=== PATIENT | male | born 1990 | race Caucasian/White ===

== ENCOUNTER 2020-01-27 10:47 | Outpatient (REF) | payer MEDICAID, SELFPAY | END 2020-01-27 10:48 | disposition home or self-care (01) | LOC: HO.LAB 10:47 | PROVIDERS: Visit Provider Internal Medicine | DX: Z20.828 Contact with and (suspected) exposure to other viral communicable diseases (principal) | CPT/HCPCS: C9803; U0003 ==

== ENCOUNTER 2020-02-10 15:51 | Emergency (ER) | payer MEDICAID, SELFPAY ==
[2020-02-10 16:16] VITALS: BP 124/63; PULSE 72; RESP 18; TEMP 36.6; O2SAT 100
--- NOTE | 2020-02-10 16:45 | ED.ALLEREA ---
HPI - Allergic Reaction General Chief complaint: Allergic Reaction Stated complaint: Allergic reaction Time Seen by Provider: 02/10/20 16:17 Source: patient and family Mode of arrival: ambulatory Limitations: no limitations and language barrier (Sister is signing for patient) History of Present Illness HPI narrative: 29-year-old male who noticed generalized rash for 1 hour. Patient tells me he was getting undressed to go in the shower and noticed an itchy rash all over his body. He denies any new foods, medications, products. He does tell me that he bought new pants and did not wash them and removed the tags this morning and was wearing them this afternoon. complaint: hives Onset (ago): hour(s) (<1hr) Exposure: unknown Symptoms: rash Severity: mild Treatment prior to arrival: none Previous Allergic Reaction History: none Related Data Previous Rx's Medication Instructions Recorded diphenhydramine HCl [Benadryl] 25 mg PO Q6H PRN #20 cap 02/10/20 prednisone 40 mg PO DAILY #8 tab 02/10/20 Allergies Allergy/AdvReac Type Severity Reaction Status Date / Time No Known Allergies Allergy Unverified 11/09/19 16:03 Review of Systems Review of Systems: Yes all other systems are reviewed and are negative Constitutional: Constitutional: Reports no additional constitutional complaints, Denies body ache(s), Denies chills, Denies fever(s), Denies headache(s) and Denies weakness Eyes: Eyes: Reports no additional eye complaints and Denies change in vision ENT: Reports system reviewed and no additional complaints, except as documented, Denies dizziness, Denies headache(s), Denies nasal congestion, Denies nasal discharge and Denies neck pain Cardiovascular: Cardiovascular: Reports no additional cardiovascular complaints, Denies chest pain, Denies leg edema and Denies dyspnea Respiratory: Respiratory: Reports no additional respiratory complaints, Denies cough and Denies dyspnea Gastrointestinal: Gastrointestinal: Reports no additional gastrointestinal complaints, Denies abdominal pain, Denies diarrhea, Denies nausea and Denies vomiting Genitourinary: Genitourinary: Denies urinary incontinence Musculoskeletal: Musculoskeletal: Reports no additional musculoskeletal complaints, Denies back pain, Denies arthralgias, Denies joint swelling, Denies neck pain, Denies numbness and Denies tingling Integumentary/Breasts: Skin/Breast: Reports system reviewed and no additional complaints, except as docu and Reports rash Neurologic: Reports system reviewed and no additional complaints, except as documented, Denies Abnormal speech present, Denies dizziness, Denies headache(s), Denies numbness, Denies tingling and Denies weakness PMFSH Past Medical History Attestation statement: The following information was validated with the patient. Source: old records reviewed and nursing notes reviewed Medical History Hearing impaired Social History Social History Smoking Status: Never smoker Substance Use Type: Marijuana Substance Use Frequency: Daily Advance Directives: No Advance Directives Information Provided: Yes Physical Exam Vital Signs: Vital Signs: Last Vital Signs Temp 97.8 F 02/10/20 16:16 Pulse 72 02/10/20 16:16 Resp 18 02/10/20 16:16 BP 124/63 02/10/20 16:16 Pulse Ox 100 02/10/20 16:16 Body Mass Index 9.1 Const: General: cooperative, healthy appearing, comfortable and no acute distress Orientation/consciousness: patient oriented x3 Limitations: no limitations HENMT: Head: Yes normal to inspection Ears: hearing grossly normal bilaterally General nose exam: Normal external nose present Face and sinus: Yes normal facial exam Mouth: Normal oral and palatal mucosa present Throat: Yes posterior oropharynx normal Eyes: General: appearance normal, both eyes and all related structures Pupils: Equal, round and reactive pupils present Neck: Neck: Yes normal visual inspection Chest: Chest palpation & inspection: normal inspection of the chest Resp: Effort & Inspection: normal respiratory effort Auscultation: clear to auscultation bilaterally Cardio: Rate: regular rate Rhythm: regular rhythm Peripheral pulses: Peripheral pulses 2+ throughout GI: Inspection: Yes normal to inspection Palpation (GI): Soft to palpation and nontender Auscultation: normal bowel sounds Back/Spine/Pelvis: Thoracic/Lumbar Spine: thoracic and lumbar spine normal to inspection Skin: Other: Urticarial rash noted to the inner thighs and lateral thighs. Also noted over the chest and back. Several lesions over the upper arms. General skin exam: no rashes or lesions noted Neuro: General: patient oriented x3, no focal motor deficits and normal sensation to monofilament Cranial nerves: Yes Equal, round and reactive pupils present Cognition (Neuro): normal cognition Speech: No Abnormal speech present Gait exam (Neuro): Normal gait present Motor exam (neuro): 5/5 motor strength present throughout Extrem: General: Yes normal to inspection Course Course Course Narrative: Exam consistent with mild allergic reaction. Patient received Benadryl and prednisone in the emergency department with some improvement. There is no airway involvement, angioedema or more systemic signs. Will discharge patient home with symptomatic relief. We discussed keeping a diary at home with his foods and products. Reviewed worrisome signs and symptoms and when to return to the emergency department. Comfortable discharge home. Discharge Plan Discharge Clinical Impression: Allergic reaction Qualifiers: Encounter type: initial encounter Qualified Code(s): T78.40XA - Allergy, unspecified, initial encounter Patient Disposition: Home, Self-Care Instructions: Urticaria (ED) Additional Instructions: You have come into contact with something that you are allergic to. This may be from earlier shorts so take these home and wash them with soap and water. Write down all products use and foods that you eat and keep a diary. Your next dose of prednisone is tomorrow. You may take Benadryl every 6-8 hours as needed Prescriptions: New diphenhydramine HCl [Benadryl] 25 mg capsule 25 mg PO Q6H PRN (Reason: itching) Qty: 20 RF: 0 prednisone 20 mg tablet 40 mg PO DAILY Qty: 8 RF: 0 Referrals: [facility] [Primary Care Provider] - 2 days Interventions: ED Discharge Assessment Last Done: 02/10/20 16:57 Discharge Date/Time: 02/10/20 16:57
[2020-02-10] MEDS: predniSONE 20 MG TABLET 60 MG PO (16:49)
[2020-02-10] MEDS: diphenhydrAMINE HCL 25 MG TABLET 50 MG PO (16:49)
== END 2020-02-10 16:57 | disposition home or self-care (01) ==
PROVIDERS: Emergency Provider Emergency Medicine
DX: L23.9 Allergic contact dermatitis, unspecified cause (principal); Z79.899 Other long term (current) drug therapy; F12.90 Cannabis use, unspecified, uncomplicated
CPT/HCPCS: 99284; Q0163

== ENCOUNTER 2020-02-11 10:53 | Emergency (ER) | payer MEDICAID, SELFPAY ==
--- NOTE | 2020-02-11 11:35 | ED.ALLEREA ---
HPI - Allergic Reaction General Chief complaint: Skin/Abscess/Foreign Body Stated complaint: allergic reaction Time Seen by Provider: 02/11/20 11:07 Source: patient and legal transcriptionist (Mom is felt tipping machine tender) Mode of arrival: ambulatory Limitations: no limitations and language barrier History of Present Illness HPI narrative: 29-year-old male here with generalized rash. He tells me he was seen here yesterday for same and was prescribed prednisone and Benadryl. He tells me he took a dose of Benadryl and prednisone while he was here in the emergency department yesterday however went to fill his medications today and they were unavailable. He tells me he has not taking any other doses of Benadryl at home. He tells me the rash is about the same. It is not worsened. He has no different symptoms. No vomiting, diarrhea, abdominal cramps, shortness of breath, cough, airway involvement. He tells me he came here because of his difficulty getting his medications. MD complaint: hives Onset (ago): day(s) Exposure: unknown Symptoms: rash Severity: mild Treatment prior to arrival: benadryl (50 benadryl x 1 yesterday, prednisone 60 x1 yesterday) Previous Allergic Reaction History: prior ED visit(s) Related Data Previous Rx's Medication Instructions Recorded diphenhydramine HCl [Benadryl] 25 mg PO Q6H PRN #20 cap 02/10/20 prednisone 40 mg PO DAILY #8 tab 02/10/20 Allergies Allergy/AdvReac Type Severity Reaction Status Date / Time No Known Allergies Allergy Verified 02/11/20 11:12 Review of Systems Review of Systems: Yes all other systems are reviewed and are negative Constitutional: Constitutional: Reports no additional constitutional complaints, Denies body ache(s), Denies chills, Denies fever(s), Denies headache(s) and Denies weakness Eyes: Eyes: Reports no additional eye complaints and Denies change in vision ENT: Reports system reviewed and no additional complaints, except as documented, Denies dizziness, Denies headache(s), Denies nasal congestion, Denies nasal discharge and Denies neck pain Cardiovascular: Cardiovascular: Reports no additional cardiovascular complaints, Denies chest pain, Denies leg edema and Denies dyspnea Respiratory: Respiratory: Reports no additional respiratory complaints, Denies cough and Denies dyspnea Gastrointestinal: Gastrointestinal: Reports no additional gastrointestinal complaints, Denies abdominal pain, Denies diarrhea, Denies nausea and Denies vomiting Genitourinary: Genitourinary: Denies urinary incontinence Musculoskeletal: Musculoskeletal: Reports no additional musculoskeletal complaints, Denies back pain, Denies arthralgias, Denies joint swelling, Denies neck pain, Denies numbness and Denies tingling Integumentary/Breasts: Skin/Breast: Reports system reviewed and no additional complaints, except as docu and Reports rash Neurologic: Reports system reviewed and no additional complaints, except as documented, Denies Abnormal speech present, Denies dizziness, Denies headache(s), Denies numbness, Denies tingling and Denies weakness PMFSH Past Medical History Attestation statement: The following information was validated with the patient. Source: old records reviewed and nursing notes reviewed Medical History Hearing impaired Social History Social History Smoking Status: Never smoker Substance Use Type: Marijuana Advance Directives: No Advance Directives Information Provided: Yes Physical Exam Vital Signs: Vital Signs: Last Vital Signs Temp 99.5 F 02/11/20 11:51 Pulse 87 02/11/20 11:51 Resp 16 02/11/20 11:51 BP 126/85 02/11/20 11:51 Pulse Ox 98 02/11/20 11:51 Body Mass Index 20.0 Const: General: cooperative, healthy appearing, comfortable and no acute distress Orientation/consciousness: patient oriented x3 Limitations: no limitations HENMT: Head: Yes normal to inspection Ears: hearing grossly normal bilaterally General nose exam: Normal external nose present Face and sinus: Yes normal facial exam Mouth: Normal oral and palatal mucosa present Throat: Yes posterior oropharynx normal Eyes: General: appearance normal, both eyes and all related structures Pupils: Equal, round and reactive pupils present Neck: Neck: Yes normal visual inspection Chest: Chest palpation & inspection: normal inspection of the chest Resp: Effort & Inspection: normal respiratory effort Auscultation: clear to auscultation bilaterally Cardio: Rate: regular rate Rhythm: regular rhythm Peripheral pulses: Peripheral pulses 2+ throughout GI: Inspection: Yes normal to inspection Palpation (GI): Soft to palpation and nontender Auscultation: normal bowel sounds Back/Spine/Pelvis: Thoracic/Lumbar Spine: thoracic and lumbar spine normal to inspection Skin: Other: Urticarial rash noted over the bilateral forearms, bilateral thighs and trunk. General skin exam: no rashes or lesions noted Neuro: General: patient oriented x3, no focal motor deficits and normal sensation to monofilament Cranial nerves: Yes Equal, round and reactive pupils present Cognition (Neuro): normal cognition Speech: No Abnormal speech present Gait exam (Neuro): Normal gait present Motor exam (neuro): 5/5 motor strength present throughout Extrem: General: Yes normal to inspection Course Course Course Narrative: Patient here with urticarial rash. Seen yesterday and diagnosed with allergic reaction. Sent home with prednisone and Benadryl but difficulty obtaining a pharmacy today. I did call pharmacy and they do have his prednisone filled however there is a cost 12 dollars as it was not covered by his insurance. This was communicated to the patient and he was okay with this. I gave him a dose of prednisone here today. They also do not have Benadryl covered by his insurance. Discussed with the patient he can buy this [id number]. He received a dose of Benadryl here. I reviewed the rash. Does not appear worsened from yesterday. We recommended continuing to medications home and follow-up with primary care doctor in 5-7 days if no improvement symptoms. Again reviewed keeping diary of all contacts, medications, products. Reviewed worrisome signs and symptoms of when to return to the emergency department. Comfortable discharge home. Discharge Plan Discharge Clinical Impression: Urticaria Patient Disposition: Home, Self-Care Instructions: Urticaria (ED) Additional Instructions: Start prednisone tomorrow. The pharmacy has it ready for you By [id number] Benadryl and take 1 pill every 6 hours as needed for rash or itching If no improvement after 5 days follow-up with your primary care doctor Prescriptions: No Action diphenhydramine HCl [Benadryl] 25 mg capsule 25 mg PO Q6H PRN (Reason: itching) Qty: 20 RF: 0 prednisone 20 mg tablet 40 mg PO DAILY Qty: 8 RF: 0 Referrals: [facility] [Primary Care Provider] - 2 days Interventions: ED Discharge Assessment Last Done: 02/11/20 12:08 Discharge Date/Time: 02/11/20 12:09
[2020-02-11 11:51] VITALS: BP 126/85; PULSE 87; RESP 16; TEMP 37.5; O2SAT 98
[2020-02-11] MEDS: diphenhydrAMINE HCL 25 MG TABLET PO (12:00)
[2020-02-11] MEDS: predniSONE 20 MG TABLET 60 MG PO (12:00)
== END 2020-02-11 12:09 | disposition home or self-care (01) ==
PROVIDERS: Emergency Provider Emergency Medicine
DX: L50.9 Urticaria, unspecified (principal)
CPT/HCPCS: 99283; Q0163

== ENCOUNTER 2020-09-27 23:14 | Emergency (ER) | payer MEDICAID, SELFPAY ==
--- NOTE | ~2020-09-27 | CT_ITS ---
EXAMINATION: CT ABDOMEN AND PELVIS WITHOUT CONTRAST CLINICAL INFORMATION: Bilateral flank pain COMPARISON: 02.18.2015 TECHNIQUE: Multidetector volumetric imaging was performed from the superior aspect of the liver through the pubic symphysis. Sagittal and coronal reformatted images were obtained on the technologist's workstation. This CT examination was performed using dose optimization techniques as appropriate, variously including the following: *Automated exposure control *Adjustment of mA and/or kV according to patient size (this includes techniques or standardized protocols for targeted exams where dose is matched to indication/reason for exam; i.e. extremities or head) *Use of iterative reconstruction technique DLP: 342 mGy-cm FINDINGS: LUNG BASES: The visualized lung bases are unremarkable. LIVER, GALLBLADDER, AND BILIARY TREE: The liver is normal in size, shape, and attenuation. No focal hepatic lesion or biliary ductal dilatation is present. The gallbladder is unremarkable with no evidence of radiopaque gallstones, gallbladder wall thickening, or obvious pericholecystic inflammatory changes. PANCREAS: Unremarkable. SPLEEN: Unremarkable. ADRENAL GLANDS: Unremarkable. KIDNEYS AND URETERS: The kidneys are normal in size, shape, and attenuation. No hydronephrosis, hydroureter, or calculi seen. No perinephric stranding. BLADDER: Unremarkable. GASTROINTESTINAL TRACT: The small and large bowel are unremarkable. The appendix is unremarkable. ABDOMINAL WALL: No significant hernia is appreciated. LYMPH NODES: Normal. VASCULAR: Unremarkable. PELVIC VISCERA: Unremarkable. OSSEOUS STRUCTURES: Unremarkable. CT/CT abdomen pelvis wo con IMPRESSION: No significant abnormality.
[2020-09-27 23:43] VITALS: BP 116/66; PULSE 86; RESP 18; TEMP 37.8; O2SAT 99; BMI 20.2
[2020-09-28 00:06] LABS: Glucose Urine UA NEG (NEG); Leukocyte Esterase Urine NEG (NEG); Nitrite Urine NEG (NEG); PH 6.5 (5.0-8.0); Specific Gravity - Urine 1.015 (1.005-1.025); Urine Blood NEG (NEG); Urine Ketones NEG (NEG); Urine Protein NEG (NEG-TRACE)
[2020-09-28 00:09] LABS: Appearance Urine HAZY; Color Urine YELLOW; UACC Culture Trigger NO
[2020-09-28 00:51] VITALS: BP 122/60; PULSE 63; RESP 16; TEMP 37.6; O2SAT 98
--- NOTE | 2020-09-28 01:01 | ED.GENADULT ---
HPI - General Adult General Chief complaint: Back Pain/Injury Stated complaint: back pain Time Seen by Provider: 09/28/20 00:02 Source: patient Mode of arrival: ambulatory Limitations: no limitations History of Present Illness HPI narrative: Patient comes by EMS complaining of bilateral flank pain. Patient states it started approximately 6 hours ago, started out with flank pain and vomiting. Patient reports 6 episodes of vomiting. Patient denies abdominal pain, no diarrhea, no fever chills, no dysuria or hematuria. Patient is deaf mute, interpretation is being done by park interpreter online Related Data Previous Rx's Medication Instructions Recorded diphenhydramine HCl 25 mg capsule 25 mg PO Q6H PRN #20 cap 02/10/20 (Benadryl) prednisone 20 mg tablet 40 mg PO DAILY #8 tab 02/10/20 cyclobenzaprine 10 mg tablet 10 mg PO TID PRN #10 tab 09/28/20 ibuprofen 600 mg tablet 600 mg PO Q8H PRN #10 tab 09/28/20 Allergies Allergy/AdvReac Type Severity Reaction Status Date / Time No Known Allergies Allergy Verified 09/27/20 23:50 Review of Systems Review of Systems: Constitutional : No Weight loss, No Fever, No Chills, No Night Sweats, No Fatigue, No Malaise ENT/Mouth : No Hearing loss, No Ear Pain, No Nasal Congestion, No Sinus Pain, No Hoarseness, No sore throat, No Rhinorrhea, No Swallowing Difficulty Eyes: No Eye Pain, No Swelling, No Redness, No Foreign Body, No Discharge, No Vision Changes Cardiovascular : No Chest Pain, No SOB, No Dyspnea on Exertion, No Orthopnea, No Edema, No Palpitations Respiratory : No Cough, No Sputum, No Wheezing, No Smoke Exposure, No Dyspnea Gastrointestinal : Complaining of nausea and vomiting, No Diarrhea, No Constipation, No abdominal Pain, No Hematochezia, No Melena Genitourinary : no irregular bleeding, No Dysuria, No Urinary Frequency, No Hematuria, No Urinary Incontinence, No Urgency, complaining of bilateral Flank Pain, No Urinary Flow Changes, No Hesitancy Musculoskeletal : No joint pain, No Myalgias, No Joint Swelling Skin : No Skin Lesions, No rash Neuro : No Weakness, No Numbness, No Paresthesias, No Loss of Consciousness, No Dizziness, No Headache Psych : No Anxiety/Panic, No Depression, No SI/HI/AH/VH, No Social Issues, Heme/Lymph: No Bruising, No Bleeding,No Lymphadenopathy Endocrine : No Polyuria, No Polydipsia, No Temperature Intolerance PMF Past Medical History Medical History Hearing impaired Social History Social History Substance Use Type: Marijuana Advance Directives: No Physical Exam Vital Signs: Vital Signs: Last Vital Signs Temp 99.6 F 09/28/20 00:51 Pulse 63 09/28/20 00:51 Resp 16 09/28/20 00:51 BP 122/60 09/28/20 00:51 Pulse Ox 98 09/28/20 00:51 Body Mass Index 20.2 Const: Other: Appearance: Alert. Oriented X3. No acute distress. Eyes: Pupils equal, round and reactive to light. ENT: Pharynx normal. Neck: Normal inspection. Neck supple. No lymph nodes noted. No crepitus CVS: Normal heart rate and rhythm. Pulses normal. Normal S1 and S2 Respiratory: No respiratory distress. Breath sounds normal. No Wheezing. No rales Abdomen: Soft and nontender. No rigidity. No distention. positive flank tenderness bilaterally Skin: Skin warm and dry. Normal skin color. Normal skin turgor. Extremities: No lower extremity edema. No lower extremity edema. No Lacerations. No Rash Neuro: Oriented X 3. No motor deficit. No sensory deficit. Moving all extermities. No slurred speech. Course Course Course Narrative: I discussed with the patient that his labs were within normal limits, no acute pathology, CT scan negative for kidney stones Patient states he feels better. Discussed with the patient that his source of pain is likely musculoskeletal. Medical Decision Making Lab Data Result diagrams: 09/28/20 01:05 09/28/20 01:05 Labs: Lab Results 09/27/20 09/28/20 09/28/20 Range/Units 23:55 01:05 01:05 WBC 8.5 (4.8-10.8) X10*3/uL RBC 5.36 (4.60-5.80) X10*6/uL Hgb 15.6 (14.0-18.0) g/dl Hct 45.2 (42-52) % MCV 84.3 (80-98) fL MCH 29.1 (27.0-33.0) pg MCHC 34.5 (31.0-36.0) g/dl RDW 12.1 (11.0-16.0) % Plt Count 194 (160-400) X10*3/uL MPV 9.9 (9.4-12.4) fL Immature Gran % (Auto) 0.4 (0.0-0.4) % Neut % (Auto) 75.8 H (45-73) % Lymph % (Auto) 7.0 L (20-40) % [place] % (Auto) 16.2 H (2-11) % Eos % (Auto) 0.2 (0-4) % Baso % (Auto) 0.4 (0-2) % Lymph # (Auto) 0.6 L (1.2-4.9) X10*3/uL [place] # (Auto) 1.4 H (0.1-1.2) X10*3/uL Eos # (Auto) 0.0 (0.0-0.4) X10*3/uL Baso # (Auto) 0.0 (0.0-0.2) X10*3/uL Abs Immat Gran (auto) 0.03 (0.00-0.03) X10*3/uL Absolute Neuts (auto) 6.5 (2.0-8.3) X10*3/uL Absolute Nucleated RBC 0.000 (0.0-0.012) X10*3/uL Nucleated RBC % (auto) 0.0 (0.0-0.2) /100WBC Sodium 137 (135-145) mmol/L Potassium 4.0 (3.3-5.1) mmol/L Chloride 103 (96-108) mmol/L Carbon Dioxide 23 (22-29) mmol/L Anion Gap 15 (12-20) BUN 9 (9-16) mg/dL Creatinine 0.98 (0.5-1.4) mg/dL Estim Creat Clear Calc 89.3 Estimated GFR > 60 Random Glucose 93 (60-115) mg/dL Calcium 9.5 (8.4-10.2) mg/dL Total Bilirubin (0.0-1.0) mg/dL Direct Bilirubin (0.0-0.5) mg/dL AST (5-37) U/L ALT (0-40) U/L Alkaline Phosphatase (39-117) U/L Total Protein (6.5-8.0) g/dL Albumin (3.5-5.0) g/dL Lipase (8-78) U/L Urine Color YELLOW Urine Appearance HAZY Urine pH 6.5 (5.0-8.0) Ur Specific Goodwin 1.015 (1.005-1.025) Urine Protein NEG (NEG-TRACE) MG/DL Urine Glucose (UA) NEG (NEG) MG/DL Urine Ketones NEG (NEG) MG/DL Urine Blood NEG (NEG) Urine Nitrite NEG (NEG) Ur Leukocyte Esterase NEG (NEG) 09/28/20 Range/Units 01:05 WBC (4.8-10.8) X10*3/uL RBC (4.60-5.80) X10*6/uL Hgb (14.0-18.0) g/dl Hct (42-52) % MCV (80-98) fL MCH (27.0-33.0) pg MCHC (31.0-36.0) g/dl RDW (11.0-16.0) % Plt Count (160-400) X10*3/uL MPV (9.4-12.4) fL Immature Gran % (Auto) (0.0-0.4) % Neut % (Auto) (45-73) % Lymph % (Auto) (20-40) % [place] % (Auto) (2-11) % Eos % (Auto) (0-4) % Baso % (Auto) (0-2) % Lymph # (Auto) (1.2-4.9) X10*3/uL [place] # (Auto) (0.1-1.2) X10*3/uL Eos # (Auto) (0.0-0.4) X10*3/uL Baso # (Auto) (0.0-0.2) X10*3/uL Abs Immat Gran (auto) (0.00-0.03) X10*3/uL Absolute Neuts (auto) (2.0-8.3) X10*3/uL Absolute Nucleated RBC (0.0-0.012) X10*3/uL Nucleated RBC % (auto) (0.0-0.2) /100WBC Sodium (135-145) mmol/L Potassium (3.3-5.1) mmol/L Chloride (96-108) mmol/L Carbon Dioxide (22-29) mmol/L Anion Gap (12-20) BUN (9-16) mg/dL Creatinine (0.5-1.4) mg/dL Estim Creat Clear Calc Estimated GFR Random Glucose (60-115) mg/dL Calcium (8.4-10.2) mg/dL Total Bilirubin 0.3 (0.0-1.0) mg/dL Direct Bilirubin 0.2 (0.0-0.5) mg/dL AST 20 (5-37) U/L ALT 17 (0-40) U/L Alkaline Phosphatase 59 (39-117) U/L Total Protein 7.8 (6.5-8.0) g/dL Albumin 4.4 (3.5-5.0) g/dL Lipase 23 (8-78) U/L Urine Color Urine Appearance Urine pH (5.0-8.0) Ur Specific Goodwin (1.005-1.025) Urine Protein (NEG-TRACE) MG/DL Urine Glucose (UA) (NEG) MG/DL Urine Ketones (NEG) MG/DL Urine Blood (NEG) Urine Nitrite (NEG) Ur Leukocyte Esterase (NEG) Imaging Data CT scan - abdomen: Radiologist's impression: FINDINGS: LUNG BASES: The visualized lung bases are unremarkable.? LIVER, GALLBLADDER, AND BILIARY TREE: The liver is normal in size, shape, and attenuation. No focal hepatic lesion or biliary ductal dilatation is present. The gallbladder is unremarkable with no evidence of radiopaque gallstones, gallbladder wall thickening, or obvious pericholecystic inflammatory changes.? PANCREAS: Unremarkable.? SPLEEN: Unremarkable.? ADRENAL GLANDS: Unremarkable.? KIDNEYS AND URETERS: The kidneys are normal in size, shape, and attenuation. No hydronephrosis, hydroureter, or calculi seen. No perinephric stranding. ? BLADDER: Unremarkable.? GASTROINTESTINAL TRACT: The small and large bowel are unremarkable. The appendix is unremarkable.? ABDOMINAL WALL: No significant hernia is appreciated.? LYMPH NODES: Normal. VASCULAR: Unremarkable. PELVIC VISCERA: Unremarkable.? OSSEOUS STRUCTURES: Unremarkable.? CT/CT abdomen pelvis wo con IMPRESSION: No significant abnormality.? Discharge Plan Discharge Clinical Impression: Acute bilateral back pain Qualifiers: Back pain location: thoracic back pain Qualified Code(s): M54.6 - Pain in thoracic spine Patient Disposition: Home, Self-Care Instructions: Back Pain (ED) Additional Instructions: Please follow-up with your primary care physician tomorrow. If you have any worsening or new symptoms, please return to the emergency room or call 911 Prescriptions: New ibuprofen 600 mg tablet 600 mg PO Q8H PRN (Reason: fever) Qty: 10 RF: 0 cyclobenzaprine 10 mg tablet 10 mg PO TID PRN (Reason: muscle spasm) Qty: 10 RF: 0 No Action diphenhydramine HCl [Benadryl] 25 mg capsule 25 mg PO Q6H PRN (Reason: itching) Qty: 20 RF: 0 prednisone 20 mg tablet 40 mg PO DAILY Qty: 8 RF: 0
[2020-09-28 01:10] LABS: MANUAL DIFF FLAG NO
[2020-09-28 01:11] LABS: Basophils Percent Auto 0.4 % (0-2); Eosinophils Percent Auto 0.2 % (0-4); Hematocrit 45.2 % (42-52); Hemoglobin 15.6 g/dl (14.0-18.0); Imm Gran Abs Auto 0.03 X10*3/uL (0.00-0.03); Imm Gran Pct Auto 0.4 % (0.0-0.4); Lymphocytes Absolute Auto 0.6 X10*3/uL (1.2-4.9); Mean Corpuscular HGB Conc 34.5 g/dl (31.0-36.0); Mean Corpuscular Hemoglobin 29.1 pg (27.0-33.0); Mean Corpuscular Volume 84.3 fL (80-98); Mean Platelet Volume 9.9 fL (9.4-12.4); Monocytes Absolute Auto 1.4 X10*3/uL (0.1-1.2); Monocytes Percent Auto 16.2 % (2-11); Neutrophils Absolute Auto 6.5 X10*3/uL (2.0-8.3); Neutrophils Percent Auto 75.8 % (45-73); Platelet Count 194 X10*3/uL (160-400); Red Blood Count 5.36 X10*6/uL (4.60-5.80); Red Cell Distribution Width 12.1 % (11.0-16.0); White Blood Count 8.5 X10*3/uL (4.8-10.8)
[2020-09-28 01:41] LABS: Anion Gap 15 (12-20); Blood Urea Nitrogen 9 mg/dL (9-16); Calcium 9.5 mg/dL (8.4-10.2); Carbon Dioxide 23 mmol/L (22-29); Chloride 103 mmol/L (96-108); Creatinine Clr Calc Pharmacy 89.3; Estimated Glomerular Filt Rate > 60; Glucose Random 93 mg/dL (60-115); Sodium 137 mmol/L (135-145)
[2020-09-28 01:42] LABS: Alanine Aminotransferase 17 U/L (0-40); Albumin Level 4.4 g/dL (3.5-5.0); Alkaline Phosphatase 59 U/L (39-117); Aspartate Amino Transferase 20 U/L (5-37); Bilirubin Direct 0.2 mg/dL (0.0-0.5); Bilirubin Total 0.3 mg/dL (0.0-1.0); Lipase 23 U/L (8-78); Total Protein 7.8 g/dL (6.5-8.0)
[2020-09-28] MEDS: 0.9 % Sodium Chloride 1,000 ML 999 ML IVCONT (01:44)
[2020-09-28] MEDS: Ketorolac Tromethamine 15 MG/ML VIAL 30 MG IVPUSH (01:44)
[2020-09-28 02:00] VITALS: BP 97/46; PULSE 67; RESP 16; TEMP 37.5; O2SAT 99
== END 2020-09-28 03:15 | disposition home or self-care (01) ==
PROVIDERS: Emergency Provider Emergency Medicine; PCP Family Medicine
DX: M54.6 Pain in thoracic spine (principal); F12.90 Cannabis use, unspecified, uncomplicated
CPT/HCPCS: 36415; 74176; 80048; 80076; 81003; 83690; 85025; 96361; 96374; 96375; 99284; J1885; J2405

== ENCOUNTER 2022-06-04 15:53 | Outpatient (REF) | payer MEDICAID, SELFPAY ==
--- NOTE | ~2022-06-04 | US_ITS ---
EXAMINATION: US SCROTUM CLINICAL INFORMATION: Right scrotal pain. Rule out torsion.. COMPARISON: CT abdomen of September 28, 2020 TECHNIQUE: A sonogram of the scrotum was performed assessing ohara-scale appearance and color Doppler flow. Spectral Doppler analysis of the arterial and venous flow were performed in the testes bilaterally. FINDINGS: RIGHT: Right testicle measures 5.1 x 2.5 x 3.5 cm, volume 23.1 mL. No focal testicular parenchymal lesions are visualized. Spectral Doppler analysis of the arterial and venous flow is normal in the right testis. Right epididymal head is normal in size. No right hydrocele or varicocele is seen. Right epididymal Doppler flow is normal. LEFT: Left testicle measures 5.2 x 2.3 x 2.9 cm, volume 17.7 mL. Within the mid left testicle there is a 2 x 1 x 2 mm homogeneously hyperechoic focus which may represent calcification or lipoma. No suspicious lesions are identified. Spectral Doppler analysis of the arterial and venous flow is normal in the left testis. Left epididymal head is normal in size. There is an epididymal appendix seen within the head of the epididymis. There is a small left hydrocele. No varicocele is seen. Left epididymal Doppler flow is normal. US/US scrotum IMPRESSION: No evidence of testicular torsion. Minimal left hydrocele. 2 mm homogeneously hyperechoic left testicular focus which may be related to a calcification or possible lipoma
--- NOTE | ~2022-06-04 | US_ITS ---
EXAMINATION: US SCROTUM CLINICAL INFORMATION: Right scrotal pain. Rule out torsion.. COMPARISON: CT abdomen of September 28, 2020 TECHNIQUE: A sonogram of the scrotum was performed assessing ohara-scale appearance and color Doppler flow. Spectral Doppler analysis of the arterial and venous flow were performed in the testes bilaterally. FINDINGS: RIGHT: Right testicle measures 5.1 x 2.5 x 3.5 cm, volume 23.1 mL. No focal testicular parenchymal lesions are visualized. Spectral Doppler analysis of the arterial and venous flow is normal in the right testis. Right epididymal head is normal in size. No right hydrocele or varicocele is seen. Right epididymal Doppler flow is normal. LEFT: Left testicle measures 5.2 x 2.3 x 2.9 cm, volume 17.7 mL. Within the mid left testicle there is a 2 x 1 x 2 mm homogeneously hyperechoic focus which may represent calcification or lipoma. No suspicious lesions are identified. Spectral Doppler analysis of the arterial and venous flow is normal in the left testis. Left epididymal head is normal in size. There is an epididymal appendix seen within the head of the epididymis. There is a small left hydrocele. No varicocele is seen. Left epididymal Doppler flow is normal. US/US scrotum doppler IMPRESSION: No evidence of testicular torsion. Minimal left hydrocele. 2 mm homogeneously hyperechoic left testicular focus which may be related to a calcification or possible lipoma
== END 2022-06-04 15:54 | disposition home or self-care (01) ==
LOC: HO.US 15:53
PROVIDERS: Visit Provider Family Medicine
DX: N50.811 Right testicular pain (principal)
CPT/HCPCS: 76870; 93975

== ENCOUNTER 2023-04-28 20:37 | Emergency (ER) | payer SELFPAY ==
[2023-04-28 20:53] VITALS: BP 131/78; PULSE 91; RESP 18; TEMP 38.1; O2SAT 97; BMI 20.8
[2023-04-28 21:23] LABS: MANUAL DIFF FLAG NO
[2023-04-28 21:25] LABS: Basophils Percent Auto 0.5 % (0-2); Eosinophils Absolute Auto 0.2 X10*3/uL (0.0-0.4); Hematocrit 46.8 % (42.0-52.0); Hemoglobin 16.4 g/dl (14.0-18.0); Imm Gran Abs Auto 0.01 X10*3/uL (0.00-0.03); Imm Gran Pct Auto 0.1 % (0.0-0.4); Lymphocytes Absolute Auto 1.7 X10*3/uL (1.2-4.9); Lymphocytes Percent Auto 22.3 % (20-40); Mean Corpuscular Hemoglobin 29.2 pg (27.0-33.0); Mean Corpuscular Volume 83.3 fL (80.0-98.0); Mean Platelet Volume 10.5 fL (9.4-12.4); Monocytes Absolute Auto 1.4 X10*3/uL (0.1-1.2); Monocytes Percent Auto 19.1 % (2-11); Neutrophils Absolute Auto 4.2 x10*3/uL (2.0-8.3); Platelet Count 209 X10*3/uL (160-400); Red Blood Count 5.62 X10*6/uL (4.60-5.80); Red Cell Distribution Width 12.4 % (11.0-16.0); White Blood Count 7.5 X10*3/uL (4.8-10.8)
[2023-04-28 21:26] LABS: Appearance Urine Clear; Color Urine Yellow; Glucose Urine UA Negative (Negative); Leukocyte Esterase Urine Negative (Negative); Nitrite Urine Negative (Negative); Specific Gravity - Urine >= 1.030 (1.005-1.025); UMIC TRIGGER UACC YES; Urine Blood Moderate (2+) (Negative); Urine Ketones Trace mg/dL (Negative); Urine Protein 30 (1+) mg/dL (Neg-Trace)
[2023-04-28 21:28] LABS: Bacteria Urine None Seen (None Seen); Hyaline Casts Urine 0-2 /LPF (0-2); Squamous Epithelial Cell Urine 0-2 /HPF (0-2); WBC Urine 0-5 /HPF (0-5)
[2023-04-28 21:37] LABS: Alanine Aminotransferase 15 U/L (0-40); Albumin Level 4.4 g/dL (3.5-5.0); Alkaline Phosphatase 59 U/L (39-117); Anion Gap 13 (12-20); Aspartate Amino Transferase 20 U/L (5-37); Bilirubin Total 0.4 mg/dL (0.0-1.0); Blood Urea Nitrogen 12 mg/dL (9-16); Calcium 9.6 mg/dL (8.4-10.2); Carbon Dioxide 27 mmol/L (22-29); Chloride 100 mmol/L (96-108); Creatinine Clr Calc Pharmacy 80.2; Estimated Glomerular Filt Rate > 60; Glucose Random 96 mg/dL (60-115); Potassium 4.1 mmol/L (3.3-5.1); Sodium 136 mmol/L (135-145); Total Protein 8.1 g/dL (6.5-8.0)
[2023-04-28 22:00] LABS: Influenza A PCR POSITIVE (Negative); Influenza B PCR NEGATIVE (Negative); Resp Syncy Virus RNA Qual PCR NEGATIVE (Negative); SARS COV2 PCR INHOUSE NEGATIVE (Negative)
[2023-04-28 22:33] VITALS: BP 125/76; PULSE 73; RESP 17; TEMP 37.1; O2SAT 95
[2023-04-28] MEDS: Acetaminophen 325 MG TABLET 975 MG PO (22:40)
--- NOTE | 2023-04-28 23:01 | ED_ITS ---
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 comes in for 2 days of not feeling good coughing fever chills running nose no other family member sick Related Data Previous Rx's Medication Instructions Recorded diphenhydramine HCl 25 mg capsule 25 mg PO Q6H PRN itching #20 caps 02/10/20 (Benadryl) prednisone 20 mg tablet 40 mg (2 x 20 mg) PO DAILY #8 tabs 02/10/20 cyclobenzaprine 10 mg tablet 10 mg PO TID PRN muscle spasm #10 09/28/20 tabs ibuprofen 600 mg tablet 600 mg PO Q8H PRN fever #10 tabs 09/28/20 benzonatate 200 mg capsule 200 mg PO TID PRN cough #30 caps 04/28/23 ibuprofen 600 mg tablet 600 mg PO Q6H PRN fever or pain 04/28/23 #30 tabs Allergies Allergy/AdvReac Type Severity Reaction Status Date / Time No Known Allergies Allergy Verified 04/28/23 21:05 Review of Systems 2 Review of Systems: Yes all other systems are reviewed and are negative PMFSH Past Medical History Medical History Hearing impaired Social History Social History Smoked in Last 30 Days: No Use of substances other than those prescribed or required for medical reasons: Yes Substance Use Type: Marijuana Substance Use Frequency: Socially Advance Directives: No Advance Directives Information Provided: No Physical Exam ED Vital Signs: Vital Signs - 24 hr 04/28/23 20:53 04/28/23 22:33 Temperature 100.5 F H 98.8 F Pulse Rate 91 73 Respiratory Rate 18 17 Blood Pressure 131/78 125/76 Pulse Oximetry 97 95 Oxygen Delivery Method Room Air Room Air BMI result Body Mass Index 20.8 Appearance: Alert. Oriented X3. No acute distress. ENT: Pharynx normal. Oral Mucosa moist clear discharge from the nostrils Neck: Normal inspection. Neck supple. CVS: Normal heart rate and rhythm. Pulses normal. Respiratory: No respiratory distress. Equal air entry bilateral, no wheezing/rales/rhonchi Abdomen: Soft and nontender. Skin: Skin warm and dry. Normal skin color. Normal skin turgor. Extremities: No lower extremity edema. No calf tenderness Neuro: Oriented X 3. Medications Administered Discontinued Medications Generic Name Dose Route Start Last Admin Trade Name Lukasq PRN Reason Stop Dose Admin Acetaminophen 975 mg 04/28/23 21:04 04/28/23 22:40 Acetaminophen 325 Mg Tablet PO 04/28/23 21:05 975 mg ONCE ONE Administration Guaifenesin/Codeine Phosphate 10 ml 04/28/23 23:05 04/28/23 23:16 Guaifen/Codeine Sf 200/20/10ml 10 Ml Liquid PO 04/28/23 23:06 10 ml ONCE ONE Administration Ibuprofen 600 mg 04/28/23 23:05 04/28/23 23:16 Ibuprofen 600 Mg Tablet PO 04/28/23 23:06 600 mg ONCE ONE Administration Medical Decision Making Lab Data [facility] Lab Attestation statement: I reviewed the patient's lab results. 04/28/23 21:16 04/28/23 21:16 Labs: Lab Results 04/28/23 Range/Units 21:16 WBC 7.5 (4.8-10.8) X10*3/uL RBC 5.62 (4.60-5.80) X10*6/uL Hgb 16.4 (14.0-18.0) g/dl Hct 46.8 (42.0-52.0) % MCV 83.3 (80.0-98.0) fL MCH 29.2 (27.0-33.0) pg MCHC 35.0 (31.0-36.0) g/dl RDW 12.4 (11.0-16.0) % Plt Count 209 (160-400) X10*3/uL MPV 10.5 (9.4-12.4) fL Immature Gran % (Auto) 0.1 (0.0-0.4) % Neut % (Auto) 56.0 (45-73) % Lymph % (Auto) 22.3 (20-40) % Maury % (Auto) 19.1 H (2-11) % Eos % (Auto) 2.0 (0-4) % Baso % (Auto) 0.5 (0-2) % Lymph # (Auto) 1.7 (1.2-4.9) X10*3/uL Maury # (Auto) 1.4 H (0.1-1.2) X10*3/uL Eos # (Auto) 0.2 (0.0-0.4) X10*3/uL Baso # (Auto) 0.0 (0.0-0.2) X10*3/uL Abs Immat Gran (auto) 0.01 (0.00-0.03) X10*3/uL Absolute Neuts (auto) 4.2 (2.0-8.3) x10*3/uL Absolute Nucleated RBC 0.000 (0.0-0.012) X10*3/uL Nucleated RBC % (auto) 0.0 (0.0-0.2) /100WBC Sodium 136 (135-145) mmol/L Potassium 4.1 (3.3-5.1) mmol/L Chloride 100 (96-108) mmol/L Carbon Dioxide 27 (22-29) mmol/L Anion Gap 13 (12-20) BUN 12 (9-16) mg/dL Creatinine 1.06 (0.5-1.4) mg/dL Estim Creat Clear Calc 80.2 Estimated GFR > 60 Random Glucose 96 (60-115) mg/dL Calcium 9.6 (8.4-10.2) mg/dL Total Bilirubin 0.4 (0.0-1.0) mg/dL AST 20 (5-37) U/L ALT 15 (0-40) U/L Alkaline Phosphatase 59 (39-117) U/L Total Protein 8.1 H (6.5-8.0) g/dL Albumin 4.4 (3.5-5.0) g/dL Urine Color Yellow Urine Appearance Clear Urine pH 6.0 (5.0-9.0) Ur Specific [place] >= 1.030 H (1.005-1.025) Urine Protein 30 (1+) H (Neg-Trace) mg/dL Urine Glucose (UA) Negative (Negative) mg/dL Urine Ketones Trace (Negative) mg/dL Urine Blood Moderate (2+) H (Negative) Urine Nitrite Negative (Negative) Ur Leukocyte Esterase Negative (Negative) Urine RBC 11-20 H (0-2) /HPF Urine WBC 0-5 (0-5) /HPF Ur Squamous Epith Cells 0-2 (0-2) /HPF Urine Bacteria None Seen (None Seen) Hyaline Casts 0-2 (0-2) /LPF Influenza Type A (PCR) POSITIVE A (Negative) Influenza Type B (PCR) NEGATIVE (Negative) RSV RNA Qual (PCR) NEGATIVE (Negative) SARS-CoV-2 RNA (RT-PCR) NEGATIVE (Negative) Discharge Plan Discharge Clinical Impression: Influenza A Patient Disposition: Home, Self-Care Instructions: Influenza (ED) Additional Instructions: Drink plenty of fluids Tylenol/ Motrin for the fever Cough drops as prescribed Prescriptions: New benzonatate 200 mg capsule 200 mg PO TID PRN (Reason: cough) Qty: 30 0RF ibuprofen 600 mg tablet 600 mg PO Q6H PRN (Reason: fever or pain) Qty: 30 0RF No Action diphenhydramine HCl [Benadryl] 25 mg capsule 25 mg PO Q6H PRN (Reason: itching) Qty: 20 0RF prednisone 20 mg tablet 40 mg PO DAILY Qty: 8 0RF ibuprofen 600 mg tablet 600 mg PO Q8H PRN (Reason: fever) Qty: 10 0RF cyclobenzaprine 10 mg tablet 10 mg PO TID PRN (Reason: muscle spasm) Qty: 10 0RF Rx Instructions: Do not drive or use machinery after taking this medication
[2023-04-28] MEDS: guaiFEN/Codeine SF 200/20/10ML 10 ML LIQUID PO (23:16)
[2023-04-28] MEDS: Ibuprofen 600 MG TABLET PO (23:16)
== END 2023-04-28 23:30 | disposition home or self-care (01) ==
PROVIDERS: Emergency Provider Internal Medicine; PCP Family Medicine
DX: J10.1 Influenza due to other identified influenza virus with other respiratory manifestations (principal); Z11.52 Encounter for screening for COVID-19; Z20.828 Contact with and (suspected) exposure to other viral communicable diseases
CPT/HCPCS: 0241U; 36415; 80053; 81001; 85025; 99283; 99284

== ENCOUNTER 2023-12-15 15:25 | Emergency (ER) | payer SELFPAY ==
--- NOTE | ~2023-12-15 | XR_ITS ---
EXAMINATION: XR FOOT, LEFT CLINICAL INFORMATION: Pain, stepped on nail. COMPARISON: None available. TECHNIQUE: AP, lateral, and oblique views of the left foot. FINDINGS: Soft tissue swelling adjacent to the fifth MTP joint. No unexpected radiopaque foreign bodies. Medial angulation of the proximal phalanx with respect to the metatarsal bone. No fractures or dislocation. XR/XR foot LT min 3V IMPRESSION: 1. Soft tissue swelling adjacent to the fifth MTP joint. 2. Nonspecific medial angulation of the proximal fifth phalanx with respect to the metatarsal bone. No fracture or dislocation. Electronically signed by: Jenniffer Felton MD 12/15/2023 07:36 PM EDT
[2023-12-15 15:32] VITALS: BP 111/59; PULSE 65; RESP 16; TEMP 36.9; O2SAT 97; BMI 21.9
--- NOTE | 2023-12-15 15:32 | ED.LOWEXIN ---
HPI - Extremity Injury (Lower) General Chief Complaint: Extremity Problem Stated Complaint: l foot inj Time Seen by Provider: 12/15/23 21:09 Source: patient Limitations: language barrier History of Present Illness ED Provider: Araseli De La Garza PA-C HPI Narrative: 33-year-old deaf male presents with left foot injury. While at work, patient has stepped on a nail independent treated the sneaker. Related Data Previous Rx's ?Medication ?Instructions ?Recorded diphenhydramine HCl 25 mg capsule 25 mg PO Q6H PRN itching #20 caps 02/10/20 (Benadryl) prednisone 20 mg tablet 40 mg (2 x 20 mg) PO DAILY #8 tabs 02/10/20 cyclobenzaprine 10 mg tablet 10 mg PO TID PRN muscle spasm #10 09/28/20 tabs ibuprofen 600 mg tablet 600 mg PO Q8H PRN fever #10 tabs 09/28/20 benzonatate 200 mg capsule 200 mg PO TID PRN cough #30 caps 04/28/23 ibuprofen 600 mg tablet 600 mg PO Q6H PRN fever or pain 04/28/23 #30 tabs Allergies Allergy/AdvReac Type Severity Reaction Status Date / Time No Known Allergies Allergy Verified 12/15/23 15:33 Review of Systems Review of Systems: Yes all other systems are reviewed and are negative Constitutional: Constitutional: Denies fatigue and Denies fever(s) Musculoskeletal: Musculoskeletal: Denies arthralgias and Denies joint swelling Endocrine: Endocrine: Denies fatigue PMFSH Past Medical History Attestation statement: The following information was validated with the patient. Medical History Hearing impaired Social History Social History Substance Use Type: Marijuana Advance Directives: No Advance Directives Information Provided: Yes Physical Exam Vital Signs: Vital Signs: Last Vital Signs Temp 97.8 F 12/15/23 18:15 Pulse 51 12/15/23 18:15 Resp 16 12/15/23 18:15 BP 121/70 12/15/23 18:15 Pulse Ox 98 12/15/23 18:15 O2 Del Method Room Air 12/15/23 18:15 BMI result Body Mass Index 21.9 Const: Other: Alert, well in appearance Orientation/consciousness: patient oriented x3 Resp: Other: Nonlabored respiration Cardio: Other: Normal peripheral perfusion Skin: Other: Warm dry no rash Neuro: General: patient oriented x3 and no focal motor deficits Extrem: Other: Did not have the opportunity to examine the foot Psych: Other: Uncooperative, somewhat hostile Course Course Course Narrative: This is an RME: Additional HPI, ROS, PE not included below will be deferred to primary provider. RME assessment and note performed by: Suma Perrin PA-C This is a 05-cpht-tat-hearing impaired male who presents to the ER with complaints of left foot pain since this morning. He accidentally stepped on a nail that puncture through his work boot and into his left foot. Last tetanus was 4 years ago. Plan: X-ray left foot Reevaluation(s) Reevaluation #1: Patient left without completing treatment. Medications Administered Discontinued Medications Generic Name Dose Route Start Last Admin Trade Name Freq PRN Reason Stop Dose Admin Acetaminophen 975 mg 12/15/23 22:10 12/15/23 22:21 Acetaminophen 325 Mg Tablet PO 12/15/23 22:11 975 mg ONCE ONE Administration Ibuprofen 600 mg 12/15/23 22:10 12/15/23 22:21 Ibuprofen 600 Mg Tablet PO 12/15/23 22:11 600 mg ONCE ONE Administration Medical Decision Making Medical Decision Making [facility] Narrative: 33-year-old deaf male presents with left foot injury. While at work, patient has stepped on a nail independent treated the sneaker. Problem: Being deaf History: Per patient I have considered the following differential diagnoses: Puncture wound, fracture, dislocation, open fracture Plan: X-ray obtained from triage is unremarkable, I then realized there was a puncture wound involved, the patient left without me being able to examine him, send antibiotics or ask about his tetanus vaccine. He was angry because he was waiting for over 7 hours, I have independently reviewed the following tests: X-ray left foot: XR/XR foot LT min 3V IMPRESSION: 1. Soft tissue swelling adjacent to the fifth MTP joint. 2. Nonspecific medial angulation of the proximal fifth phalanx with respect to the metatarsal bone. No fracture or dislocation. Discharge Plan Discharge Clinical Impression: Foot pain Patient Disposition: Left W/O Completing Treatment Prescriptions: No Action diphenhydramine HCl [Benadryl] 25 mg capsule 25 mg PO Q6H PRN (Reason: itching) Qty: 20 0RF prednisone 20 mg tablet 40 mg PO DAILY Qty: 8 0RF ibuprofen 600 mg tablet 600 mg PO Q8H PRN (Reason: fever) Qty: 10 0RF cyclobenzaprine 10 mg tablet 10 mg PO TID PRN (Reason: muscle spasm) Qty: 10 0RF Rx Instructions: Do not drive or use machinery after taking this medication benzonatate 200 mg capsule 200 mg PO TID PRN (Reason: cough) Qty: 30 0RF ibuprofen 600 mg tablet 600 mg PO Q6H PRN (Reason: fever or pain) Qty: 30 0RF Discharge Date/Time: 12/16/23 03:19
[2023-12-15 18:15] VITALS: BP 121/70; PULSE 51; RESP 16; TEMP 36.6; O2SAT 98
[2023-12-15] MEDS: Acetaminophen 325 MG TABLET 975 MG PO (22:21)
[2023-12-15] MEDS: Ibuprofen 600 MG TABLET PO (22:21)
--- NOTE | 2023-12-15 22:42 | PC.NURSE ---
pt medicated per MAR with APAP and IBU-With child care counselor pt refused post op shoe and crutches-spoke with HILLARY De La Garza, Augmentin ordered. fibre technologist went to to cleanse wound- pt refused care before this nurse could administer abx. Pt left the dept fully ambulatory.
== END 2023-12-16 03:19 | disposition left against medical advice (07) ==
PROVIDERS: Emergency Provider Internal Medicine
DX: Z04.2 Encounter for examination and observation following work accident (principal); M79.672 Pain in left foot
CPT/HCPCS: 73630; 99283